=== PATIENT | female | born 1995 | race Hispanic/Latino ===

== ENCOUNTER 2018-08-28 20:58 | Emergency (ER) | payer OTHER, BC ==
[2018-08-28 21:35] VITALS: BP 108/59; PULSE 62; TEMP 98.5; O2SAT 99
--- NOTE | 2018-08-28 22:01 | ED PDOC ---
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 Patient states she was at the [facility] for working purposes, when she went to pet the dog, the dog bit her on the right hand. As per patient she called the [facility] and was told the dog did not have records of vaccinations there fore was instructed by the job to come to ED for rabies vaccine. As per patient the wound did not bleed after the bite. - Animal Bite Description Of The Attack: Tried To Pet Animal Description Of The Animal: Other (animal [facility]) Animal's Immunization Status: Not Recently Immunized Animal Control Notified: Yes Past Medical History Reviewed: Historical Data, Nursing Documentation, Vital Signs Vital Signs: Last Vital Signs Temp 98.5 F 08/28/18 21:34 Pulse 62 08/28/18 21:34 Resp 16 08/28/18 21:34 BP 108/59 L 08/28/18 21:34 Pulse Ox 99 08/28/18 21:34 Primary Care Provider: FAMILY PROVIDER,NO - Medical History PMH: No Chronic Diseases - Surgical History Surgical History: No Surg Hx - Family History Family History: States: Unknown Family Hx - Social History Alcohol: None Drugs: Denies - Immunization History Hx Tetanus Toxoid Vaccination: No Hx Influenza Vaccination: No Hx Pneumococcal Vaccination: No - Allergies Allergies/Adverse Reactions: Allergies Allergy/AdvReac Type Severity Reaction Status Date / Time No Known Allergies Allergy Verified 08/28/18 21:31 Review of Systems ROS Statement: Except As Marked, All Systems Reviewed And Found Negative Constitutional: Negative for: Fever, Chills, Sweats, Weakness Eyes: Negative for: Pain Respiratory: Negative for: Cough, SOB with Exertion Gastrointestinal: Negative for: Nausea, Vomiting, Abdominal Pain Skin: Positive for: Other (pin point red spot on palm of right hand ) Physical Exam - Reviewed Nursing Documentation Reviewed: Yes Vital Signs Reviewed: Yes - Physical Exam Appears: Positive for: Well, Non-toxic, No Acute Distress Head Exam: Positive for: ATRAUMATIC, NORMAL INSPECTION, NORMOCEPHALIC Skin: Positive for: Normal Color, Warm, DRY Eye Exam: Positive for: Normal appearance, PERRL ENT: Positive for: Normal ENT Inspection Neck: Positive for: Normal, Painless ROM, Supple Cardiovascular/Chest: Positive for: Regular Rate, Rhythm Respiratory: Positive for: CNT, Normal Breath Sounds Gastrointestinal/Abdominal: Positive for: Normal Exam, Soft Back: Positive for: Normal Inspection Extremity: Positive for: Normal ROM Neurological/Psych: Positive for: Awake, Alert, Normal Tone, Oriented (right hand injury noted. No skin breakage or open wound noted. small amt of fluid collection under skin noted. Injury is pin point in size, raised. ) - ECG O2 Sat by Pulse Oximetry: 99 Medical Decision Making Medical Decision Making: Dr. Ruffin consulted as, no skin opening noted, MD advised if there is not skin opening rabies vaccines is not needed. Patient advised of recommendation and agrees with plan. Disposition - Clinical Impression Clinical Impression: Dog bite - Patient ED Disposition Is Patient to be Admitted: No Counseled Patient/Family Regarding: Diagnosis - Disposition Disposition: Routine/Home Disposition Time: 22:00 Condition: GOOD Instructions: Animal Bites (DC) Forms: [employer] (Czech) Print Language: TONGAN - POA Present On Arrival: None
[2018-08-28 22:10] VITALS: RESP 62
== END 2018-08-28 22:44 | disposition home or self-care (01) ==
LOC: H.ER 20:58
DX: S60.512A Abrasion of left hand, initial encounter (principal); W54.0XXA Bitten by dog, initial encounter; Y99.0 Civilian activity done for income or pay